=== PATIENT | male | born 1990 | race Caucasian/White ===

== ENCOUNTER 2017-04-07 09:56 | Emergency (ER) | payer OTHER ==
[~2017-04-07] VITALS: Ht 157.5 cm; Wt 55.9 kg
[2017-04-07 10:08] VITALS: BP 121/78
--- NOTE | 2017-04-07 10:32 | NUR ---
CLEANED PATIENTS HEAD LACERATION WITH PEROXIDE AND SALINE. PATIENT TOLERATED WELL.
--- NOTE | 2017-04-07 10:34 | NUR ---
Patient taken to CT via wheelchair per tech.
--- NOTE | 2017-04-07 10:44 | NUR ---
Patient back from CT via wheelchair per tech--to lobby.
--- NOTE | 2017-04-07 11:28 | NUR ---
Pt placed in overflow chair.
--- NOTE | 2017-04-07 11:30 | NUR ---
26M DROPPED OFF BY FAMILY C/O LACERATION TO LEFT PARIETAL HEAD X 1 HR AGO TODAY; OPEN WOUND, NO ACTIVE BLEEDING TO SITE AT THIS TIME; PT STATES WAS HIT BY A BAT AT HIS HOME; PT STATES NO PAIN AT THIS TIME, BUT C/O DIZZINESS; PT STATES NO LOC AT TIME OF INCIDENT OR VISION CHANGES AT THIS TIME; PT AA&OX4, PERRLA, BL LUNG SOUNDS CLEAR, RR EVEN/UNLABORED, SKIN IS WARM/DRY AT THIS TIME; PT STATES NO N/V/D AT THIS TIME; PT RESTING IN CHAIR, POSITIONED FOR COMFORT; ER MD MADE AWARE OF STATUS. WILL CONTINUE TO MONITOR.
--- NOTE | 2017-04-07 11:48 | NUR ---
Sandrita SANTACRUZ evaluating patient.
--- NOTE | 2017-04-07 11:53 | NUR ---
Dr. Cruz evaluating patient.
[2017-04-07] MEDS ORDERED: NACL 0.9% 1,000 ML IV ONE (12:10)
[2017-04-07] MEDS ORDERED: ONDANSETRON 4 MG/2 ML VIAL IVP ONE (12:15)
--- NOTE | 2017-04-07 12:19 | NUR ---
REPORT GIVEN TO NEGRITO HOOKER AT [facility].
[2017-04-07] MEDS ORDERED: HYDROmorphone 1 MG/ML AMP IVP ONE (12:35)
[2017-04-07] MEDS ORDERED: HYDROmorphone 1 MG/ML AMP ONE (12:41)
[2017-04-07 12:44] VITALS: BP 125/81
--- NOTE | 2017-04-07 12:44 | NUR ---
Patient to be transferred to [facility]. Is being transferred due to HIGHER LEVEL OF CARE. Receiving facility has accepting physician and available space. ER physician has signed transfer form. Patient or responsible democrat has agreed to transfer and signed form. Patient belongings inventoried and will be sent with patient. Copy of nursing notes, lab reports, EKG, Physicians Orders and X-rays to be sent with patient. Report called to NEGRITO HOOKER at receiving facility. PT BEING TRANSFERRED TO [facility]IA G[facility]NEY ACCOMPANIED BY [facility] AT THIS TIME.
== END 2017-04-07 12:44 | disposition home or self-care (01) ==
LOC: MED 09:56
DX: S02.0XXA Fracture of vault of skull, initial encounter for closed fracture (principal); S00.03XA Contusion of scalp, initial encounter; F12.90 Cannabis use, unspecified, uncomplicated; Y08.02XA Assault by strike by baseball bat, initial encounter; Y93.89 Activity, other specified; Y92.89 Other specified places as the place of occurrence of the external cause; Y99.8 Other external cause status
CPT/HCPCS: 70450; 72125; 96374; 96375; 99285; J1170; J2405; J7030